=== PATIENT | male | born 1950 | race Caucasian/White ===

== ENCOUNTER 2020-01-06 06:34 | Outpatient (CLI) | payer MEDICARE, SELFPAY ==
[2020-01-06 09:31] LABS: Alanine Aminotransferase 34 U/L (4-50); Albumin Level 4.4 g/dL (3.5-5.1); Alkaline Phosphatase 48 U/L (38-126); Aspartate Amino Transferase 42 U/L (17-59); Bilirubin,Total 0.6 mg/dL (0.2-1.3); Blood Urea Nitrogen 20 mg/dL (9-20); Calcium 9.2 mg/dL (8.4-10.2); Carbon Dioxide 27 mmol/L (22-30); Chloride 101 mmol/L (98-107); Cholesterol 84 mg/dL (0-200); Estimated Glomerular Filt Rate > 60; Glucose 84 mg/dL (75-110); HDL Direct 39 mg/dL; Sodium 142 mmol/L (137-145); Triglycerides 60 mg/dL (<150)
[2020-01-06 09:41] LABS: LDL Cholesterol Direct 32 mg/dL
== END 2020-01-06 06:35 | disposition home or self-care (01) ==
PROVIDERS: PCP Family Medicine; Visit Provider Family Medicine
DX: E11.9 Type 2 diabetes mellitus without complications (principal); I25.10 Atherosclerotic heart disease of native coronary artery without angina pectoris
CPT/HCPCS: 36415; 80053; 80061

== ENCOUNTER → 2021-02-06 02:51 | Outpatient (CLI) | payer MEDICARE, SELFPAY ==
[2021-02-06 18:08] LABS: SARS-CoV-2 RNA PCR Negative
== END ==
PROVIDERS: PCP Family Medicine; Visit Provider Internal Medicine Gastroenterology
DX: Z01.812 Encounter for preprocedural laboratory examination (principal); Z20.822 Contact with and (suspected) exposure to COVID-19
CPT/HCPCS: C9803; U0003; U0005

== ENCOUNTER 2021-02-09 00:42 | Day surgery (SDC) | payer MEDICARE, SELFPAY ==
[2021-01-29 10:59] VITALS: BMI 24.1
[2021-02-09 10:51] VITALS: BP 149/61; PULSE 54; RESP 18; TEMP 36.1; O2SAT 100; BMI 22.1
[2021-02-09] MEDS: LACTATED RINGERS 1,000 ML 150 ML IV CONT (10:54)
--- NOTE | 2021-02-09 11:36 | P.PNAN_ITS ---
Anes - Initial Pre Proc Eval Procedure: Operation Date: 02/09/21 12:00 Proposed Procedures p Screening Colonoscopy - Tim Juan MD Date/Time: 02/09/21 11:36 Surgeon: Tim Juan MD Pre Op Diagnosis: neoplasm screening Patient Data Age: 71 Gender: M Height: 5 ft 7 in Weight: 64.3 kg Last Vital Signs Temp 96.9 F L 02/09/21 10:51 Pulse 54 L 02/09/21 10:51 Resp 18 02/09/21 10:51 BP 149/61 H 02/09/21 10:51 Pulse Ox 100 02/09/21 10:51 Allergies Allergy/AdvReac Type Severity Reaction Status Date / Time naproxen Allergy Unknown Jittery Verified 02/09/21 10:49 POLLENS Allergy Mild Congested Uncoded 02/09/21 10:49 Home Medications Medication Instructions Recorded Confirmed Type aspirin 81 mg tablet,delayed 81 mg PO DAILY 11/25/19 02/09/21 History release atorvastatin 40 mg tablet 40 mg PO DAILY #90 tablet 04/04/20 02/09/21 Rx clopidogrel 75 mg tablet 75 mg PO DAILY #90 tablet 04/04/20 02/09/21 Rx lisinopril 10 mg tablet 10 mg PO DAILY 06/29/20 02/09/21 History metoprolol succinate 25 mg See Rx Instructions .ROUTE 12/27/20 02/09/21 Rx tablet,extended release 24 hr .COMPLEX #90 tablet Patient hx anesthesia problems: none Family hx anesthesia problems: none PMFSH Past Medical History Medical History (Updated 02/09/21 @ 11:29 by Luis Noonan MD) Coronary artery disease involving [place] coronary artery of [place] heart Essential (primary) hypertension Rheumatoid arthritis, unspecified Family History Family History Mother Family history of mental disorder Depression Father Family history of cardiovascular disease Cerebrovascular accident Sibling Carcinoma of colon Other Hypertension Social History Social History (Updated 12/29/20 @ 10:43 by Ghazal Reyes CMA) Smoking packs per day: 1 Smoking cigarettes per day: 20.0 Years smoked: 20 Smoking pack-years: 20.00 Smoking status: Former smoker Tobacco type: cigarettes Second hand tobacco smoke exposure: No Smoking end date: 11/17/96 Alcohol intake: never Drinks per week: 1 Substance use: current Substance use type: does not use Living arrangements: with family Gender identity (if verbalized by the patient): Male Spiritual care concerns: No Agree to blood products: Yes Anes - Eval Final PreProcedure Day of Procedure 02/09/21 11:36 Patient weight: normal Heart: regular rate and rhythm Lungs: clear to auscultation Airway: Mallampati scale class II Neurological: alert and oriented Last oral intake: >/= 8 hours ASA classification: III Emergent: no Anesthetic plan: proceed Anesthesia type and monitoring: general GIVS and standard monitoring Informed Consent: The patient's anesthetic plan and its attendant risks and benefits were discussed with the patient/family/POA. Questions were solicited and answers provided to the satisfaction of the patient/family/POA.
--- NOTE | 2021-02-09 12:10 | PM.HPGS ---
History of Present Illness History of Present Illness Consent: Risks, benefits, and alternatives have been discussed and questions answered. Patient agrees to proceed with procedure. Chief complaint: neoplasm screening Narrative: Beck Lr is a 71 year old male with colon polyps 2016 and sister with colon cancer Review of Systems Constitutional: Constitutional: Denies headache(s) and Denies weakness Eyes: Eyes: Denies blurry vision ENT: Reports Normal hearing present, Denies headache(s) and Denies neck pain Cardiovascular: Cardiovascular: Denies chest pain and Denies dyspnea Respiratory: Respiratory: Denies dyspnea Gastrointestinal: Gastrointestinal: Reports no additional gastrointestinal complaints Genitourinary: Genitourinary: Denies dysuria Musculoskeletal: Musculoskeletal: Denies neck pain Integumentary/Breasts: Skin/Breast: Denies dry skin Neurologic: Reports Normal hearing present, Denies headache(s) and Denies weakness Psychiatric: Psychiatric: Denies anxiety Endocrine: Endocrine: Denies change in body appearance Hematologic/Lymphatic: Hematologic/Lymphatic: Denies easy bleeding Allergic/Immunologic: Allergic/Immunologic: Denies urticaria PMFSH Past Medical History Medical History (Updated 02/09/21 @ 12:11 by Tim Juan MD) Coronary artery disease involving [place] coronary artery of [place] heart Essential (primary) hypertension Family history of colon cancer Rheumatoid arthritis, unspecified Family History Family History Mother Family history of mental disorder Depression Father Family history of cardiovascular disease Cerebrovascular accident Sibling Carcinoma of colon Other Hypertension Social History Social History (Updated 12/29/20 @ 10:43 by Ghazal Reyes CMA) Smoking packs per day: 1 Smoking cigarettes per day: 20.0 Years smoked: 20 Smoking pack-years: 20.00 Smoking status: Former smoker Tobacco type: cigarettes Second hand tobacco smoke exposure: No Smoking end date: 11/17/96 Alcohol intake: never Drinks per week: 1 Substance use: current Substance use type: does not use Living arrangements: with family Gender identity (if verbalized by the patient): Male Spiritual care concerns: No Agree to blood products: Yes Meds Home Medications and Allergies Home Medications Medication Instructions Recorded Confirmed Type aspirin 81 mg tablet,delayed 81 mg PO DAILY 11/25/19 02/09/21 History release atorvastatin 40 mg tablet 40 mg PO DAILY #90 tablet 04/04/20 02/09/21 Rx clopidogrel 75 mg tablet 75 mg PO DAILY #90 tablet 04/04/20 02/09/21 Rx lisinopril 10 mg tablet 10 mg PO DAILY 06/29/20 02/09/21 History metoprolol succinate 25 mg See Rx Instructions .ROUTE 12/27/20 02/09/21 Rx tablet,extended release 24 hr .COMPLEX #90 tablet Allergies Allergy/AdvReac Type Severity Reaction Status Date / Time naproxen Allergy Unknown Jittery Verified 02/09/21 10:49 POLLENS Allergy Mild Congested Uncoded 02/09/21 10:49 Vital Signs Vital Signs - 24 hr 02/09/21 10:51 Temperature 96.9 F L Pulse Rate 54 L Respiratory Rate 18 Blood Pressure 149/61 H Pulse Oximetry 100 Exam Const: General: comfortable and no acute distress HENMT: General nose exam: Normal nares present Eyes: General: appearance normal, both eyes and all related structures Neck: Neck: no JVD Resp: Auscultation: clear to auscultation bilaterally Cardio: Rate: regular rate Rhythm: regular rhythm GI: Inspection: non-distended GI Palp: Yes Soft to palpation Skin: General skin exam: normal color Neuro: General: gait normal Speech: normal speech Extrem: General: normal to inspection Psych: Mental Status: mental status grossly normal Assessment and Plan Assessment and plan (1) Polyp of colon: Code(s): K63.5 - Polyp of colon Status: Acute As
[2021-02-09 12:39] VITALS: BP 106/64; PULSE 58; RESP 21; O2SAT 99
[2021-02-09 12:49] VITALS: BP 115/62; PULSE 60; RESP 17; O2SAT 99
[2021-02-09 12:59] VITALS: BP 130/67; PULSE 52; RESP 23; O2SAT 99
== END 2021-02-09 13:11 | disposition home or self-care (01) ==
PROVIDERS: PCP Family Medicine; Visit Provider Internal Medicine Gastroenterology
PROC: 0DJD8ZZ Inspection of Lower Intestinal Tract, Via Natural or Artificial Opening Endoscopic (ICD-10-PCS; CPT 45378; principal; 2021-02-09 12:00)
DX: Z12.11 Encounter for screening for malignant neoplasm of colon (principal); D12.0 Benign neoplasm of cecum; D12.2 Benign neoplasm of ascending colon; D12.3 Benign neoplasm of transverse colon; D12.4 Benign neoplasm of descending colon; K63.5 Polyp of colon; K64.8 Other hemorrhoids; Z80.0 Family history of malignant neoplasm of digestive organs; I25.10 Atherosclerotic heart disease of native coronary artery without angina pectoris; I10 Essential (primary) hypertension; M06.9 Rheumatoid arthritis, unspecified; Z79.02 Long term (current) use of antithrombotics/antiplatelets; Z79.82 Long term (current) use of aspirin; Z87.891 Personal history of nicotine dependence
CPT/HCPCS: 45385; 88305; C9803; J2704; J7120; U0003; U0005

== ENCOUNTER 2021-04-29 07:42 | Emergency (ER) | payer MEDICARE, SELFPAY ==
[2021-04-29 07:44] VITALS: BP 171/82; PULSE 83; RESP 20; TEMP 36.2; O2SAT 96
--- NOTE | 2021-04-29 08:08 | PC.NURSE ---
Covid PCR swab collected and sent to lab. Pt states I think I have covid, I can't give it to my grandchildren . Denies covid exposure, fully vaccinated with [employer] in Dec 2020. Reports x1 day congested cough with green mucus, denies CP/SOB. NSR on monitor
--- NOTE | 2021-04-29 08:13 | ED.GENADULT ---
HPI - General Adult General Chief complaint: Upper Respiratory Infection Stated complaint: HEADACHE, SORE THROAT Time Seen by Provider: 04/29/21 07:51 History of Present Illness HPI narrative: Patient is a 71-year-old male who presents to the ER with concerns for Covid. Last night he began having sinus congestion with sore throat and productive cough. He is experiencing postnasal drip. Often gets sinus congestion but wants to make sure he does not have COVID-19 since he could potentially be around unvaccinated grandchildren. He received his vaccinations in December of this year. He reports some chills but no documented fevers. No shortness of breath. No known sick contacts. Reports loss of taste and smell that lasted for 1 hour last night. Related Data Home Medications Medication Instructions Recorded Confirmed aspirin 81 mg tablet,delayed 81 mg PO DAILY 11/25/19 02/09/21 release lisinopril 10 mg tablet 10 mg PO DAILY 06/29/20 02/09/21 Allergies Allergy/AdvReac Type Severity Reaction Status Date / Time naproxen Allergy Unknown Jittery Verified 04/29/21 07:51 POLLENS Allergy Mild Congested Uncoded 04/29/21 07:51 Review of Systems Review of Systems: All systems reviewed & are unremarkable except as noted in HPI and below Constitutional: Constitutional: Reports chills, Denies fever(s) and Denies weakness ENT: Reports nasal congestion and Reports sore throat Comments: Loss of taste/smell Respiratory: Respiratory: Reports cough, Denies dyspnea and Denies wheezing Gastrointestinal: Gastrointestinal: Denies abdominal pain, Denies nausea and Denies vomiting [facility] Past Medical History Medical History (Updated 04/29/21 @ 08:16 by Jewel Guerra MD) Coronary artery disease involving [place] coronary artery of [place] heart Essential (primary) hypertension Family history of colon cancer Rheumatoid arthritis, unspecified Family History Family History Mother Family history of mental disorder Depression Father Family history of cardiovascular disease Cerebrovascular accident Sibling Carcinoma of colon Other Hypertension Social History Social History (Updated 12/29/20 @ 10:43 by Ghazal Reyes CMA) Smoking packs per day: 1 Smoking cigarettes per day: 20.0 Years smoked: 20 Smoking pack-years: 20.00 Smoking status: Former smoker Tobacco type: cigarettes Second hand tobacco smoke exposure: No Smoking end date: 11/17/96 Alcohol intake: never Drinks per week: 1 Substance use: current Substance use type: does not use Gender identity (if verbalized by the patient): Male Spiritual care concerns: No Agree to blood products: Yes Exam Narrative: Exam Narrative: GENERAL: Well-appearing, well-nourished, and in no acute distress. HEAD: Normocephalic, atraumatic. CHEST: Clear to auscultation. No respiratory distress. HEART: Regular rate and rhythm. Normal peripheral pulses. EXTREMITIES: Normal range of motion. No edema. NEURO: Alert and oriented x3. PSYCH: Normal mood and affect. Course Course Emergency Course: Patient received a Covid swab. Educated on self isolation until receiving his results. Verbalized understanding. Discharge home. Vital Signs Vital signs: Vital Signs Temperature 97.2 F L 04/29/21 07:44 Pulse Rate 83 04/29/21 07:44 Respiratory Rate 20 04/29/21 07:44 Blood Pressure 171/82 H 04/29/21 07:44 Pulse Oximetry 96 04/29/21 07:44 Temperature 97.2 F L 04/29/21 07:44 Pulse Rate 83 04/29/21 07:44 Respiratory Rate 20 04/29/21 07:44 Blood Pressure 171/82 H 04/29/21 07:44 Pulse Oximetry 96 04/29/21 07:44 Medical Decision Making Vital Signs Vital Signs: Vital Signs Temperature 97.2 F L 04/29/21 07:44 Pulse Rate 83 04/29/21 07:44 Respiratory Rate 20 04/29/21 07:44 Blood Pressure 171/82 H 04/29/21 07:44 Pulse Oximetry 96 04/29/21 07:44
[2021-04-29 08:21] VITALS: BP 174/91; PULSE 73; RESP 15; O2SAT 98
[2021-04-30 17:43] LABS: SARS-CoV-2 RNA PCR Negative
== END 2021-04-29 08:35 | disposition home or self-care (01) ==
PROVIDERS: Emergency Provider Emergency Medicine; PCP Family Medicine
DX: J06.9 Acute upper respiratory infection, unspecified (principal); Z20.822 Contact with and (suspected) exposure to COVID-19; I25.10 Atherosclerotic heart disease of native coronary artery without angina pectoris; I10 Essential (primary) hypertension; M06.9 Rheumatoid arthritis, unspecified; Z79.82 Long term (current) use of aspirin; Z87.891 Personal history of nicotine dependence
CPT/HCPCS: 99283; C9803; U0003; U0005

== ENCOUNTER 2022-01-16 13:40 | Outpatient (CLI) | payer MEDICARE, SELFPAY | END 2022-01-16 13:41 | disposition home or self-care (01) | LOC: ANHSURGERY 13:44 | PROVIDERS: PCP Family Medicine; Visit Provider Surgery | DX: Z01.818 Encounter for other preprocedural examination (principal); K40.90 Unilateral inguinal hernia, without obstruction or gangrene, not specified as recurrent | CPT/HCPCS: 36415; 86850; 86900; 86901 ==

== ENCOUNTER 2022-01-21 00:31 | Day surgery (SDC) | payer MEDICARE, SELFPAY ==
[2022-01-10 14:43] VITALS: BMI 23.5
--- NOTE | 2022-01-10 14:56 | PC.NURSE ---
Report to the Outpatient Waiting Room, entrance under the green pavilion located off [facility], at time _0600_ on date _01/21/22_. OR Time: _0730_. - You and your visitor will be asked a series of questions to screen for COVID 19 for your protection. - A mask is required within the hospital. Preoperative COVID Testing Requirements: NONE Patients may have clear liquids (water, carbonated beverages, clear teas, apple juice) until 3 hours prior to surgery (0430AM) with a maximum of 20 ounces. - No food from midnight until time of surgery Take the following medications with a SIP of water the morning of surgery: _METOPROLOL, TRAMADOL IF NEEDED__ Medications to discontinue per DR. PERDUE - _PLAVIX 7 DAYS PRIOR TO SURGERY, Date to take last dose 01/13/22, MELOXICAM PER DR. PERDUE'S INSTRUCTIONS_ Please no make-up, nail amharic, hairspray, perfume, deodorant, or body powder the day of surgery. No jewelry (including any body piercings) or valuables the day of surgery, leave them at home. Please take a shower or bath the night before, or the morning of, surgery with an antibacterial soap. Wear comfortable, loose fitting clothing. - Jewelry must be removed prior to entering the operating room. Rings and piercings that are not removed may be cut off. - The hospital will not accept responsibility for valuables. - Please leave all valuables, including medications, at home the day of surgery. If you are going home after surgery, a licensed [place] driver must drive you home. - NO public transportation without another adult. - We recommend that an adult stay with you for 24 hours following discharge. - We also recommend that you do not drive, make important decision, drink alcoholic beverages, or take any drugs that were not prescribed by your health care provider for at least 24 hours after your discharge time. One visitor will be allowed to accompany the patient into the hospital. Patients visitor will be instructed to remain with patient at all times or leave the building. We will allow the visitor to come back to the postoperative area when patient is ready. Follow any additional instructions given to you from your surgeon. [facility] Telephone instructions given to ___PT and asked if any additional questions and then verbalized understanding. Patient advised to call surgeon office or pre surgery nurse liaisonBRUCE [phone] if any additional questions.
[2022-01-21] VITALS (9 sets, daily range): BP systolic 129–186; BP diastolic 63–92; PULSE 59–95; RESP 14–18; TEMP 36.1–36.5; O2SAT 98–99
--- NOTE | 2022-01-21 07:01 | P.PNAN_ITS ---
Anes - Initial Pre Proc Eval Procedure: Operation Date: 01/21/22 07:30 Proposed Procedures p Robotic Assisted Left Inguinal Hernia Repair with Mesh - Stefanie Tamayo MD Date/Time: 01/21/22 07:01 Surgeon: Stefanie Tamayo MD Pre Op Diagnosis: Lt Ing Hernia Patient Data Age: 72 Gender: M Height: 1.7 m Weight: 68.18 kg Allergies Allergy/AdvReac Type Severity Reaction Status Date / Time naproxen Allergy Unknown Jittery Verified 01/10/22 14:40 POLLENS Allergy Mild Congested Uncoded 01/10/22 14:40 Home Medications Medication Instructions Recorded Confirmed Type lisinopril 10 mg tablet 10 mg PO QAM 06/29/20 01/10/22 History meloxicam 15 mg tablet 15 mg PO DAILY #90 tablet 12/03/21 01/10/22 Rx tramadol 50 mg tablet 50 mg PO Q6H PRN #20 tablet 01/01/22 01/10/22 Rx atorvastatin 40 mg PO QAM 01/10/22 01/10/22 History clopidogrel 75 mg QAM 01/10/22 01/10/22 History metoprolol succinate 25 mg QAM 01/10/22 01/10/22 History Patient hx anesthesia problems: none Family hx anesthesia problems: none Results Review: All pre-operative results and documents have been reviewed as part of the pre-operative evaluation. [facility] Past Medical History Medical History Coronary artery disease involving [place] coronary artery of [place] heart Essential (primary) hypertension Family history of colon cancer Rheumatoid arthritis, unspecified Surgical History Surgical History History of cholecystectomy History of intravascular stent placement Family History Family History Mother Family history of mental disorder Depression Father Family history of cardiovascular disease Cerebrovascular accident Sibling Carcinoma of colon Other Hypertension Social History Social History Smoking packs per day: 1 Smoking cigarettes per day: 20.0 Years smoked: 20 Smoking pack-years: 20.00 Smoking status: Former smoker Tobacco type: cigarettes Second hand tobacco smoke exposure: No Smoking end date: 11/17/96 Alcohol intake: former Drinks per week: 1 Alcohol use details: STATES WAS A SOCIAL DRINKER IN THE PAST, NONE NOW Substance use: never Substance use type: does not use Living arrangements: alone Gender identity (if verbalized by the patient): Male Spiritual care concerns: No Agree to blood products: Yes Anes - Eval Final PreProcedure Day of Procedure 01/21/22 07:01 Patient weight: normal Heart: regular rate and rhythm Lungs: decreased breath sounds Airway: Mallampati scale class II Neurological: alert and oriented Last oral intake: >/= 8 hours ASA classification: III Emergent: no Anesthetic plan: proceed Anesthesia type and monitoring: general ETT and standard monitoring Results Review: All pre-operative results and documents have been reviewed as part of the pre-operative evaluation. Informed Consent: The patient's anesthetic plan and its attendant risks and benefits were discussed with the patient/family/POA. Questions were solicited and answers provided to the satisfaction of the patient/family/POA.
[2022-01-21] MEDS: ACETAMINOPHEN 500 MG TABLET 1000 MG PO (07:02)
[2022-01-21] MEDS: LACTATED RINGERS 1,000 ML 30 ML IV CONT ×2 (07:02→09:53)
[2022-01-21] MEDS: KETOROLAC 15 MG/ML VIAL (*BKC) IV PUSH (07:05)
--- NOTE | 2022-01-21 07:24 | PM.IMHP ---
H&P: HPI History of Present Illness Date/Time: 01/21/22 07:24 Beck is a 72 y/o male who presents to our office at the request of Tan Rehman PA-C with complaints of left groin bulge and pain. He states he has been experiencing these symptoms for the past few months. He states he does lift weights, and did notice pain after lifting a few months ago. He has noticed a slight increase in size. He states the bulge is reducible when he lays down. He denies any problems with BM's. Chief Complaint: left inguinal hernia Review of Systems Review of Systems: All systems reviewed & are unremarkable except as noted in HPI and below PMFSH Past Medical History Medical History Coronary artery disease involving [place] coronary artery of [place] heart Essential (primary) hypertension Family history of colon cancer Rheumatoid arthritis, unspecified Surgical History Surgical History History of cholecystectomy History of intravascular stent placement Family History Family History Mother Family history of mental disorder Depression Father Family history of cardiovascular disease Cerebrovascular accident Sibling Carcinoma of colon Other Hypertension Social History Social History Smoking packs per day: 1 Smoking cigarettes per day: 20.0 Years smoked: 20 Smoking pack-years: 20.00 Smoking status: Former smoker Tobacco type: cigarettes Second hand tobacco smoke exposure: No Smoking end date: 11/17/96 Alcohol intake: former Drinks per week: 1 Alcohol use details: STATES WAS A SOCIAL DRINKER IN THE PAST, NONE NOW Substance use: never Substance use type: does not use Living arrangements: alone Gender identity (if verbalized by the patient): Male Spiritual care concerns: No Agree to blood products: Yes Meds Home Medications and Allergies Home Medications Medication Instructions Recorded Confirmed Type lisinopril 10 mg tablet 10 mg PO QAM 06/29/20 01/21/22 History meloxicam 15 mg tablet 15 mg PO DAILY #90 tablet 12/03/21 01/21/22 Rx tramadol 50 mg tablet 50 mg PO Q6H PRN #20 tablet 01/01/22 01/21/22 Rx atorvastatin 40 mg PO QAM 01/10/22 01/21/22 History clopidogrel 75 mg QAM 01/10/22 01/21/22 History metoprolol succinate 25 mg QAM 01/10/22 01/21/22 History Allergies Allergy/AdvReac Type Severity Reaction Status Date / Time naproxen Allergy Unknown Jittery Verified 01/21/22 07:15 POLLENS Allergy Mild Congested Uncoded 01/21/22 07:15 Vital Signs Vital Signs - 24 hr 01/21/22 07:19 Temperature 36.5 C Pulse Rate 59 L Respiratory Rate 18 Blood Pressure 153/63 H Pulse Oximetry 99 Exam Const: General: cooperative, comfortable and no acute distress Nutritional Appearance: average body habitus Orientation/consciousness: patient oriented x3 Limitations: no limitations Resp: Effort & Inspection: normal respiratory effort Auscultation: clear to auscultation bilaterally Cardio: Rate: regular rate Rhythm: regular rhythm GI: Inspection: normal to inspection and non-distended GI Palp: Yes Soft to palpation, No Tenderness to palpation present (GI), No Guarding due to palpation present (GI), No Rigid due to palpation and Yes Hernia present Other: reducible LIH Assessment and Plan Assessment and plan (1) Inguinal hernia, left: Code(s): K40.90 - Unilateral inguinal hernia, without obstruction or gangrene, not specified as recurrent Status: Acute Assessment and Plan: will setup for robotic assisted LIH repair c mesh
--- NOTE | 2022-01-21 07:26 | WPDHPUPDATE1 ---
History and Physical Update Update Date/Time: 01/21/22 07:26 History and Physical has been reviewed, including an updated exam of the patient. There are NO changes in the patient's condition. Risks, benefits, and alternatives have been discussed and questions answered. Patient agrees to proceed with procedure.
[2022-01-21] MEDS: ceFAZolin 2 GM/D5W 50 ML 2 GM/50 ML BAG IVPB (07:28)
[2022-01-21] MEDS: BUPIVACAINE HCL 0.5% PF 30 ML VIAL INFILTRATE (08:06)
--- NOTE | 2022-01-21 09:18 | W.PM.PROC2 ---
Procedure Note - Detailed Date of Procedure 01/21/22 Pre-op Diagnosis left inguinal hernia Post-op Diagnosis Same Procedure Performed robotic assisted left inguinal hernia repair with mesh Surgeon Stefanie Tamayo MD Anesthesia General Indications 72 y/o M c moderate sized LIH, increasing in size and symptomatology over last few months Findings moderate indirect LIH Description of Procedure Patient was brought into the operating room and placed in the supine position. After adequate induction of general anesthesia, the patient was prepped and draped in normal sterile fashion. A time-out was then done to verify the patient's identity, as well as the procedure being performed. I began by making a 8 mm incision in the supraumbilical region, a Veress needle was then placed into the peritoneal cavity. CO2 gas was then insufflated and after adequate pneumoperitoneum was achieved, the Veress needle was removed. I then placed an 8 mm trocar through this incision. I then placed the endoscope through this trocar site and under direct visualization placed 2 further 8 mm ports in the right and left mid abdomen. The [employer] robot was then docked to the 3 trocar sites. I then scrubbed out and went to the robotic console. Upon examining the pelvis, it was noted that the patient had a moderate left inguinal hernia. The right side was examined and no hernia defect was noted. I began by making a preperitoneal flap approximately 6 cm superior to the defect. This flap was carried medially past the umbilical ligaments and laterally to the transversalis. It then began dissection of my medial compartment taking this down to the pubic tubercle. I then began the lateral dissection taking this down to the transversalis fascia. Once these compartments were achieved, I began dissection around the cord structures. A moderate sized indirect hernia was noted at this point. Using careful dissection, was able to reduce indirect hernia sac off the cord structures. Once this was adequately done, I went ahead and placed a extra large piece of 3D Max mesh into the abdominal cavity. The mesh was carefully positioned, centering the center of the mesh over the indirect defect. Once this was done, was very satisfied with our repair. Using 3-0 Vicryl sutures, I tacked the mesh medially to Darion's ligament. Two lateral sutures were placed from the mesh to the transversalis fascia. I then closed the peritoneal flap with a running 2.0 V Lock suture. The abdomen was then desufflated, and all ports were removed. All incisions were then closed with the 4.0 monocryl suture. Dermabond was placed on each wound. The patient tolerated the procedure well, was extubated in the operating room postoperatively, and will now be transferred to the recovery room in stable condition. Implants extra large 3DMax mesh Estimated Blood Loss 10 Drains No Packing No Pathology None sent Complications No immediate complications Condition Stable Disposition PACU
[2022-01-21] MEDS: fentaNYL CITRATE INJ (*CRX) 100 MCG/2 ML VIAL 25 MCG IV PUSH ×2 (09:30→09:41)
[2022-01-21] MEDS: oxyCODONE HCL (*CRX) 5 MG TAB IR PO (10:30)
--- NOTE | 2022-01-21 10:40 | SUR.PHASEII ---
Ok to resume Plavix tomorrow per Dr. Tamayo.
== END 2022-01-21 11:06 | disposition home or self-care (01) ==
PROVIDERS: PCP Family Medicine; Visit Provider Surgery
PROC: 8E0Y4CZ Robotic Assisted Procedure of Lower Extremity, Percutaneous Endoscopic Approach (ICD-10-PCS; CPT 49650; principal; 2022-01-21 07:30)
DX: K40.90 Unilateral inguinal hernia, without obstruction or gangrene, not specified as recurrent (principal); Z80.0 Family history of malignant neoplasm of digestive organs; Z90.49 Acquired absence of other specified parts of digestive tract; I25.10 Atherosclerotic heart disease of native coronary artery without angina pectoris; I10 Essential (primary) hypertension; M06.9 Rheumatoid arthritis, unspecified; Z87.891 Personal history of nicotine dependence; Z95.5 Presence of coronary angioplasty implant and graft
CPT/HCPCS: 49650; S2900; 36415; 86850; 86900; 86901; A9270; C1781; J0360; J0690; J1100; J1885; J2250; J2270; J2405; J2704; J3010; J7030; J7120

== ENCOUNTER 2023-03-01 10:04 | Emergency (ER) | payer MEDICARE, SELFPAY ==
--- NOTE | ~2023-03-01 | XR_ITS ---
EXAMINATION: XR finger 5th RT min 2V INDICATION: Right hand pain and swelling, initial encounter TECHNIQUE: Four views of the right fifth finger are obtained. COMPARISON: 11/27/2009 FINDINGS: There is an acute, traumatic, closed distal neck fracture of the fifth metacarpal. There is mild palmar displacement of the distal fracture fragment. There are 20 degrees of palmar angulation at the fracture site. Soft tissue swelling surrounds the fracture. 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 IMPRESSION: 1. Acute distal neck fracture of the fifth metacarpal with mild palmar displacement and angulation. Reviewed, dictated and finalized at location [facility]. IMPRESSION: 1. Acute distal neck fracture of the fifth metacarpal with mild palmar displace ment and angulation.
[2023-03-01 10:14] VITALS: BP 197/87; PULSE 60; RESP 16; TEMP 37.1; O2SAT 99
[2023-03-01 10:16] VITALS: BP 193/88
--- NOTE | 2023-03-01 10:39 | ED.UPPEXIN ---
HPI - Extremity Injury (Upper) General Chief Complaint: Extremity Injury, Upper Stated Complaint: rt hand injury Time Seen by Provider: 03/01/23 10:25 Source: patient, RN notes reviewed and old records reviewed Mode of arrival: ambulatory Limitations: no limitations History of Present Illness HPI narrative: 73 year old male presents to [facility] care with complaints of injury to his right hand which occurred today when he was attending a track meet. Patient reports he was walking backward and stumbled over something and fell and put his right hand out to try and break his fall. Patient has pain and swelling dorsal aspect of his right hand along 5th metacarpal region with bruising. Patient has strong right radial pulse sensation intact to right 5th finger with brisk capillary refill. MD complaint: injury to: right and hand Onset (ago): hour(s) (1 hour prior to arrival) Severity scale (1-10): 4 Related Data Allergies Allergy/AdvReac Type Severity Reaction Status Date / Time naproxen Allergy Unknown Jittery Verified 10/22/22 08:22 POLLENS Allergy Mild Congested Uncoded 10/22/22 08:22 Review of Systems Review of Systems: CONSTITUTIONAL: Denies fever, chills, or sweats. EYES: Denies visual changes, redness, or discharge. ENT: Denies rhinorrhea, congestion, sore throat, or otalgia. CARDIOVASCULAR: Denies chest pain, palpitations, or edema. RESPIRATORY: Denies cough or dyspnea. GASTROINTESTINAL: Denies abdominal pain, nausea, vomiting, or diarrhea. GENITOURINARY: Denies dysuria or hematuria. SKIN: Denies rash or itching. MUSCULOSKELETAL: Denies back pain,positve for pain and swelling to dorsal right hand along 5th metacarpal, or myalgia. NEUROLOGIC: Denies headache, numbness, or weakness. PSYCHIATRIC: Denies anxiety or depression. All systems reviewed & are unremarkable except as noted in HPI and below PMFSH Past Medical History Medical History Coronary artery disease involving [place] coronary artery of [place] heart Essential (primary) hypertension Family history of colon cancer Rheumatoid arthritis, unspecified Surgical History Surgical History History of cholecystectomy History of intravascular stent placement History of robot-assisted repair of left inguinal hernia w mesh 01/21/22 Family History Family History Mother Family history of mental disorder Depression Father Family history of cardiovascular disease Cerebrovascular accident Sibling Carcinoma of colon Other Hypertension Social History Social History Social History: not a smoker Smoking packs per day: 1 Smoking cigarettes per day: 20.0 Years smoked: 20 Smoking pack-years: 20.00 Smoking status: Former smoker Tobacco type: cigarettes Second hand tobacco smoke exposure: No Smoking end date: 11/17/96 Alcohol intake: former Drinks per week: 1 Alcohol use details: STATES WAS A SOCIAL DRINKER IN THE PAST, NONE NOW Substance use: never Substance use type: does not use Lack of Transportation: YES Lack of Food: Never True Current Housing: I Have Housing Concerned About Future Housing: No Difficulty Paying Gas/Electric Bills: No Difficulty Paying for Meds: No Currently Unemployed: No Education: High School Diploma/GED Difficulty w/ Childcare or Family Care: No Living arrangements: alone Occupation/Education: retired Gender identity (if verbalized by the patient): Male Spiritual care concerns: No Agree to blood products: Yes Comments At time of signature, agree with nursing past medical, surgical, social and family history. There is no relevant family history pertinent to the presenting complaint Exam Narrative: GENERAL: Well-appearing, well-nourished, and in no acute distres
== END 2023-03-01 11:54 | disposition home or self-care (01) ==
PROVIDERS: Emergency Provider Registered Nurse; PCP Family Medicine
DX: S62.336A Displaced fracture of neck of fifth metacarpal bone, right hand, initial encounter for closed fracture (principal); W01.0XXA Fall on same level from slipping, tripping and stumbling without subsequent striking against object, initial encounter; I25.10 Atherosclerotic heart disease of native coronary artery without angina pectoris; I10 Essential (primary) hypertension; M06.9 Rheumatoid arthritis, unspecified; Z87.891 Personal history of nicotine dependence
CPT/HCPCS: 29125; 73140; 99214; G0463

== ENCOUNTER 2023-06-03 00:12 | Day surgery (SDC) | payer MEDICARE, SELFPAY ==
[2023-05-26 10:11] VITALS: BMI 24.3
[2023-06-03 06:57] VITALS: BP 167/71; PULSE 56; RESP 18; TEMP 36.1; O2SAT 100
[2023-06-03] MEDS: LACTATED RINGERS 1,000 ML 150 ML IV CONT (07:07)
--- NOTE | 2023-06-03 07:45 | WPDANESEPPF ---
Anes - Initial Pre Proc Eval Procedure: Operation Date: 06/03/23 08:00 Proposed Procedures p Colonoscopy - Tim Juan MD Date/Time: 06/03/23 07:45 Surgeon: Tim Juan MD Pre Op Diagnosis: family hx colon ca, hx colon polyps Patient Data Age: 73 Gender: M Height: 1.7 m Weight: 67.7 kg Last Vital Signs Temp 97.0 F L 06/03/23 06:57 Pulse 56 L 06/03/23 06:57 Resp 18 06/03/23 06:57 BP 167/71 H 06/03/23 06:57 Pulse Ox 100 06/03/23 06:57 O2 Del Method Room Air 06/03/23 06:57 Allergies Allergy/AdvReac Type Severity Reaction Status Date / Time naproxen Allergy Unknown Jittery Verified 06/03/23 07:08 Home Medications Medication Instructions Recorded Confirmed Type lisinopril 20 mg tablet 20 mg PO DAILY #90 tabs 02/05/23 06/03/23 Rx atorvastatin 40 mg tablet 40 mg PO QAM #90 tabs 04/07/23 06/03/23 Rx metoprolol succinate 25 mg 25 mg PO QAM #90 tabs 04/21/23 06/03/23 Rx tablet,extended release 24 hr meloxicam 15 mg tablet 15 mg PO DAILY #90 tabs 04/28/23 06/03/23 Rx clopidogrel 75 mg tablet 75 mg PO DAILY 05/26/23 06/03/23 History Patient hx anesthesia problems: none Family hx anesthesia problems: none Results Review: All pre-operative results and documents have been reviewed as part of the pre-operative evaluation. COUNT INCLUDES THE [facility] Past Medical History Medical History Coronary artery disease involving [place]qu[place] coronary artery of [place]qu[place] heart Essential (primary) hypertension Family history of colon cancer Rheumatoid arthritis, unspecified Surgical History Surgical History History of cholecystectomy History of intravascular stent placement History of robot-assisted repair of left inguinal hernia w mesh 01/21/22 Family History Family History Mother Family history of mental disorder Depression Father Family history of cardiovascular disease Cerebrovascular accident Sibling Carcinoma of colon Unknown Arthritis Other Hypertension Social History Social History Social History: not a smoker Smoking packs per day: 1 Smoking cigarettes per day: 20.0 Years smoked: 20 Smoking pack-years: 20.00 Smoking status: Former smoker Tobacco type: cigarettes Second hand tobacco smoke exposure: No Smoking end date: 11/17/96 Alcohol intake: current Drinks per week: 3 Alcohol use details: occasional Substance use: current Substance use type: marijuana Last use: Daily Lack of Transportation: YES Lack of Food: Never True Current Housing: I Have Housing Concerned About Future Housing: No Difficulty Paying Gas/Electric Bills: No Difficulty Paying for Meds: No Currently Unemployed: No Education: High School Diploma/GED Difficulty w/ Childcare or Family Care: No Living arrangements: alone Occupation/Education: retired Gender identity (if verbalized by the patient): Male Spiritual care concerns: No Agree to blood products: Yes Anes - Eval Final PreProcedure Day of Procedure 06/03/23 07:45 Patient weight: normal Heart: regular rate and rhythm Lungs: clear to auscultation Airway: Mallampati scale class II Neurological: alert and oriented Last oral intake: >/= 8 hours ASA classification: III Emergent: no Anesthetic plan: proceed Anesthesia type and monitoring: general GIVS and standard monitoring Results Review: All pre-operative results and documents have been reviewed as part of the pre-operative evaluation. Informed Consent: The patient's anesthetic plan and its attendant risks and benefits were discussed with the patient/family/POA. Questions were solicited and answers provided to the satisfaction of the patient/family/POA.
--- NOTE | 2023-06-03 07:58 | PM.HPGS ---
History of Present Illness History of Present Illness Consent: Risks, benefits, and alternatives have been discussed and questions answered. Patient agrees to proceed with procedure. Chief complaint: family hx colon ca, hx colon polyps Narrative: Beck Lr is a 73 year old male with several colon polyps in 2020, sister had colon cancer Review of Systems Constitutional: Constitutional: Denies headache(s) and Denies weakness Eyes: Eyes: Denies blurry vision ENT: Reports Normal hearing present, Denies headache(s) and Denies neck pain Cardiovascular: Cardiovascular: Denies chest pain and Denies dyspnea Respiratory: Respiratory: Denies dyspnea Gastrointestinal: Gastrointestinal: Reports no additional gastrointestinal complaints Genitourinary: Genitourinary: Denies dysuria Musculoskeletal: Musculoskeletal: Denies neck pain Integumentary/Breasts: Skin/Breast: Denies dry skin Neurologic: Reports Normal hearing present, Denies headache(s) and Denies weakness Psychiatric: Psychiatric: Denies anxiety Endocrine: Endocrine: Denies change in body appearance Hematologic/Lymphatic: Hematologic/Lymphatic: Denies easy bleeding Allergic/Immunologic: Allergic/Immunologic: Denies urticaria PMFSH Past Medical History Medical History Coronary artery disease involving [place] coronary artery of [place] heart Essential (primary) hypertension Family history of colon cancer Rheumatoid arthritis, unspecified Surgical History Surgical History History of cholecystectomy History of intravascular stent placement History of robot-assisted repair of left inguinal hernia w mesh 01/21/22 Family History Family History Mother Family history of mental disorder Depression Father Family history of cardiovascular disease Cerebrovascular accident Sibling Carcinoma of colon Unknown Arthritis Other Hypertension Social History Social History Social History: not a smoker Smoking packs per day: 1 Smoking cigarettes per day: 20.0 Years smoked: 20 Smoking pack-years: 20.00 Smoking status: Former smoker Tobacco type: cigarettes Second hand tobacco smoke exposure: No Smoking end date: 11/17/96 Alcohol intake: current Drinks per week: 3 Alcohol use details: occasional Substance use: current Substance use type: marijuana Last use: Daily Lack of Transportation: YES Lack of Food: Never True Current Housing: I Have Housing Concerned About Future Housing: No Difficulty Paying Gas/Electric Bills: No Difficulty Paying for Meds: No Currently Unemployed: No Education: High School Diploma/GED Difficulty w/ Childcare or Family Care: No Living arrangements: alone Occupation/Education: retired Gender identity (if verbalized by the patient): Male Spiritual care concerns: No Agree to blood products: Yes Meds Home Medications and Allergies Home Medications Medication Instructions Recorded Confirmed Type lisinopril 20 mg tablet 20 mg PO DAILY #90 tabs 02/05/23 06/03/23 Rx atorvastatin 40 mg tablet 40 mg PO QAM #90 tabs 04/07/23 06/03/23 Rx metoprolol succinate 25 mg 25 mg PO QAM #90 tabs 04/21/23 06/03/23 Rx tablet,extended release 24 hr meloxicam 15 mg tablet 15 mg PO DAILY #90 tabs 04/28/23 06/03/23 Rx clopidogrel 75 mg tablet 75 mg PO DAILY 05/26/23 06/03/23 History Allergies Allergy/AdvReac Type Severity Reaction Status Date / Time naproxen Allergy Unknown Jittery Verified 06/03/23 07:08 Vital Signs Vital Signs - 24 hr 06/03/23 06:57 Temperature 97.0 F L Pulse Rate 56 L Respiratory Rate 18 Blood Pressure 167/71 H Pulse Oximetry 100 Oxygen Delivery Room Air Exam Const: General: comfortable and no acute distress HENMT: F
[2023-06-03 08:12] VITALS: BP 92/53; PULSE 50; RESP 18; O2SAT 100
[2023-06-03 08:23] VITALS: BP 102/56; PULSE 64; RESP 18; O2SAT 97
[2023-06-03 08:28] VITALS: BP 112/62; PULSE 62; RESP 18; O2SAT 98
== END 2023-06-03 08:40 | disposition home or self-care (01) ==
PROVIDERS: PCP Family Medicine; Visit Provider Internal Medicine Gastroenterology
PROC: 0DJD8ZZ Inspection of Lower Intestinal Tract, Via Natural or Artificial Opening Endoscopic (ICD-10-PCS; CPT 45378; principal; 2023-06-03 08:00)
DX: Z12.11 Encounter for screening for malignant neoplasm of colon (principal); Z86.010 Personal history of colon polyps; Z80.0 Family history of malignant neoplasm of digestive organs; K64.8 Other hemorrhoids; Q27.33 Arteriovenous malformation of digestive system vessel; I25.10 Atherosclerotic heart disease of native coronary artery without angina pectoris; I10 Essential (primary) hypertension; Z87.891 Personal history of nicotine dependence; F12.90 Cannabis use, unspecified, uncomplicated
CPT/HCPCS: G0105; J2704; J7120

== ENCOUNTER → 2023-09-29 08:40 | Outpatient (CLI) | payer MEDICARE, SELFPAY ==
--- NOTE | ~2023-09-29 | MR_ITS ---
MRI of the brain Clinical History: Amnesia Technique: Axial and sagittal T1-weighted images were acquired. These were followed by axial T2-weigh kelsey, diffusion weighted, gradient, and FLAIR images. Findings: There is no acute infarct, intracranial hemorrhage, or mass lesion. There is mild to modera te chronic microvascular ischemic change in the periventricular white matter bilaterally. Ventricles and subarachnoid spaces are unremarkable. Orbits are unremarkable. There is sinus disease involving the right maxillary sinus, bilateral ethmoid sinuses, and right frontal sinus. Mastoid air cells are clear. Major intracranial flow voids are intact. Sagittal midline structures are intact. IMPRESSION: No acute infarct, intracranial hemorrhage, or mass lesion. Mild to moderate chronic microvascular ischemic changes. Sinusitis, as above. Reviewed, dictated and finalized at [facility]. OR PAINTER
== END ==
PROVIDERS: PCP Family Medicine; Visit Provider Nurse Practitioner Family
DX: R41.3 Other amnesia (principal); J32.9 Chronic sinusitis, unspecified
CPT/HCPCS: 70551

== ENCOUNTER 2023-10-23 08:46 | Emergency (ER) | payer MEDICARE, SELFPAY ==
[2023-10-23 09:02] VITALS: BP 160/94; PULSE 69; RESP 16; TEMP 37; O2SAT 98
--- NOTE | 2023-10-23 09:14 | ED.URI ---
HPI - URI/Sore Throat General Chief Complaint: Upper Respiratory Infection Stated Complaint: STUFFY NOSE/SORE THROAT History of Present Illness HPI Narrative: 73 y/o male presented for c/o sore throat and nasal congestion/drainage for 2 days. States he felt like the roof of his mouth was numb, which has resolved. Currently rates throat pain 11/26. Has not required anything for symptoms. Denies sob, wheezing, n/v/d/f/c. Related Data Allergies Allergy/AdvReac Type Severity Reaction Status Date / Time naproxen Allergy Unknown Jittery Verified 10/23/23 09:01 Review of Systems Review of Systems: CONSTITUTIONAL: Denies body aches, fever, chills, or sweats. EYES: Denies visual changes, redness, or discharge. ENT: reports rhinorrhea, congestion, sore throat CARDIOVASCULAR: Denies chest pain, palpitations, or edema. RESPIRATORY: Denies dyspnea. GASTROINTESTINAL: Denies abdominal pain, nausea, vomiting, or diarrhea. SKIN: Denies rash, itching, or wounds. MUSCULOSKELETAL: Denies back pain, joint pain, or myalgia. NEUROLOGIC: Denies headache PMFSH Past Medical History Medical History Broken finger Right pinky finger Coronary artery disease involving ute coronary artery of ute heart Essential (primary) hypertension Family history of colon cancer Rheumatoid arthritis, unspecified Surgical History Surgical History History of cholecystectomy History of intravascular stent placement History of robot-assisted repair of left inguinal hernia w mesh 01/21/22 Family History Family History Mother Family history of mental disorder Depression Father Family history of cardiovascular disease Cerebrovascular accident Sibling Carcinoma of colon Unknown Arthritis Other Hypertension Social History Social History Social History: not a smoker Smoking packs per day: 1 Smoking cigarettes per day: 20.0 Years smoked: 20 Smoking pack-years: 20.00 Smoking status: Former smoker Tobacco type: cigarettes Second hand tobacco smoke exposure: No Smoking end date: 11/17/96 Alcohol intake: current Drinks per week: 3 Alcohol use details: occasional Substance use: current Substance use type: marijuana Last use: Daily Lack of Transportation: YES Lack of Food: Never True Current Housing: I Have Housing Concerned About Future Housing: No Difficulty Paying Gas/Electric Bills: No Difficulty Paying for Meds: No Currently Unemployed: No Education: High School Diploma/GED Difficulty w/ Childcare or Family Care: No Living arrangements: alone Occupation/Education: retired Gender identity (if verbalized by the patient): Male Spiritual care concerns: No Agree to blood products: Yes Exam Narrative: GENERAL: well-appearing, no acute distress. EYES: conjunctivae clear ENT: Mucous membranes moist. TMs pearly schulz with normal light reflex bilaterally; no tragal tenderness. Oropharynx not erythematous without lesions. Tonsils not enlarged and without exudate. No drooling, no hoarseness, no trismus, uvula midline. No tripod positioning, hot potato voice, or soft palate swelling. NECK: Supple. No lymphadenopathy CHEST: Clear to auscultation, breath sounds equal. No respiratory distress, speaks in full sentences. HEART: Regular rate and rhythm. No murmur heard. SKIN: Warm, dry, no rash. NEURO: Alert and oriented x3. Course Course Emergency Course: Patient is aware of diagnosis, understands and agrees to treatment plan. Anticipatory guidance given. Patient agrees to follow-up as directed and is aware of reasons to seek care at the emergency department. Portions of this record may have been created with voice recognition software Level of Car
== END 2023-10-23 09:30 | disposition home or self-care (01) ==
PROVIDERS: Emergency Provider Nurse Practitioner Family; PCP Family Medicine
DX: J06.9 Acute upper respiratory infection, unspecified (principal); Z20.822 Contact with and (suspected) exposure to COVID-19; Z87.891 Personal history of nicotine dependence; F12.90 Cannabis use, unspecified, uncomplicated; I25.10 Atherosclerotic heart disease of native coronary artery without angina pectoris; I10 Essential (primary) hypertension; M06.9 Rheumatoid arthritis, unspecified
CPT/HCPCS: 87081; 87426; 87804; 87880; 99213; C9803; G0463

== ENCOUNTER 2024-09-28 08:34 | Outpatient (CLI) | payer MEDICARE, SELFPAY ==
[2024-09-28 14:45] LABS: Alanine Aminotransferase 20 U/L (6-50); Albumin Level 4.6 g/dL (3.5-5.1); Alkaline Phosphatase 57 U/L (38-126); Anion Gap 7 mmol/L (4-12); Aspartate Amino Transferase 74 U/L (17-59); Bilirubin,Total 0.6 mg/dL (0.2-1.3); Blood Urea Nitrogen 24 mg/dL (9-20); Calcium 9.1 mg/dL (8.4-10.2); Carbon Dioxide 31 mmol/L (22-30); Chloride 103 mmol/L (98-107); Cholesterol 84 mg/dL (0-200); Estimated Glomerular Filt Rate > 60; Glucose 79 mg/dL (65-110); HDL Direct 40 mg/dL; Potassium 4.2 mmol/L (3.4-5.0); Sodium 141 mmol/L (137-145); Triglycerides 47 mg/dL (<150)
[2024-09-28 14:50] LABS: Basophils Percent Auto 0.4 % (0.2-1.2); Eosinophils Absolute Auto 0.3 K/mm3 (0-0.3); Eosinophils Percent Auto 4.4 % (0-4.4); Hematocrit 43.9 % (42.0-52.0); Hemoglobin 13.9 g/dL (14.0-18.0); Immature Granulocyte Absolute 0.02 K/mm3 (0.00-0.031); Immature Granulocyte Percent A 0.3 % (0-0.5); Lymphocytes Absolute Auto 1.79 K/mm3 (0.9-3.2); Lymphocytes Percent Auto 23.6 % (18.3-44.2); Mean Corpuscular HGB Conc 31.7 g/dl (32-36); Mean Corpuscular Volume 97.8 fl (80-100); Mean Platelet Volume 9.7 fl (7.4-10.4); Monocytes Absolute Auto 0.5 K/mm3 (0.1-0.6); Monocytes Percent Auto 6.6 % (2.6-8.5); Neutrophils Absolute Auto 4.9 K/mm3 (1.3-6.7); Neutrophils Percent Auto 64.7 % (45.5-73.1); Platelet Count Result 229 k/mm3 (150-375); Red Blood Count 4.49 M/mm3 (4.6-6.20); Red Cell Distribution Width 12.3 % (11.5-14.5); White Blood Count 7.6 K/mm3 (4.5-10.0)
[2024-09-28 15:17] LABS: Prostate Specific Antigen 4.6 ng/mL (< OR = 4.0); Thyroid Stimulating Hormone 0.622 uIU/mL (0.465-4.680)
[2024-09-28 18:34] LABS: LDL Cholesterol Direct < 30 mg/dL
== END 2024-09-28 08:35 | disposition home or self-care (01) ==
LOC: ANHGOSHLAB 08:36
PROVIDERS: PCP Family Medicine; Visit Provider Nurse Practitioner Family
DX: Z12.5 Encounter for screening for malignant neoplasm of prostate (principal); I10 Essential (primary) hypertension; I25.10 Atherosclerotic heart disease of native coronary artery without angina pectoris; R53.83 Other fatigue; L71.9 Rosacea, unspecified
CPT/HCPCS: 36415; 80053; 80061; 84153; 84443; 85025; G0103